=== PATIENT | female | born 1940 | race African-American/Black ===

== ENCOUNTER 2018-03-25 16:00 | Inpatient (IN) | payer MEDICARE, OTHER ==
[~2018-03-25] VITALS: Ht 162.6 cm; Wt 93.4 kg
[2018-03-25] MEDS ORDERED: SODIUM CHLORIDE 0.9% 1000ML BAG (SEPSIS BOLUS) IV ONE (17:00)
[2018-03-25 18:39] LABS: HEMATOCRIT. 39.1 % (36.0-48.0); HEMOGLOBIN. 12.2 g/dL (12.0-16.0); MEAN CORPUSCULAR HEMOGLOBIN 25.8 pg (28.0-32.0); MEAN CORPUSCULAR VOLUME 82.9 fL (81.0-99.0); PLATELET 328 x1000/uL (130-400); RED BLOOD CELL COUNT 4.72 mill/uL (4.2-5.4); RED CELL DISTRIBUTION WIDTH 15.9 % (11.6-14.6)
[2018-03-25 18:47] LABS: INR 1.1; PROTHROMBIN TIME 11.2 sec (9.1-11.1)
[2018-03-25 18:56] LABS: CHLORIDE 104 mEq/L (98-107)
[2018-03-25 18:59] LABS: ETHANOL BLOOD < 10 mg/dL
[2018-03-25] MEDS ORDERED: METRONIDAZOLE 500 MG PREMIX 100 ML IV ONE (19:00)
[2018-03-25] MEDS ORDERED: PIPERACILLIN/TAZ 3.375G PREMIX 50 ML IV ONE (19:00)
[2018-03-25 19:20] LABS: PLATELET ESTIMATE NORMAL
[2018-03-25 19:54] LABS: CLARITY URINE CLOUDY (CLEAR); COLOR URINE DARK YELLOW (YELLOW); KETONES URINE NEGATIVE (NEGATIVE); LEUKOCYTE ESTERASE URINE 1+ (NEGATIVE); NITRITE URINE POSITIVE (NEGATIVE); OCCULT BLOOD URINE TRACE (NEGATIVE); PROTEIN URINE TRACE (NEGATIVE); SPECIFIC GRAVITY URINE 1.021 (1.005-1.030)
[2018-03-25 20:40] LABS: *AMPHETAMINES SCREEN URINE NEGATIVE (NEGATIVE); *BARBITURATES SCREEN URINE NEGATIVE (NEGATIVE); *BENZODIAZEPINES SCREEN URINE NEGATIVE (NEGATIVE); *COCAINE SCREEN URINE NEGATIVE (NEGATIVE); METHADONE URINE SCREEN NEGATIVE (NEGATIVE); OPIATES URINE SCREEN PRESUMTIVE POSITIVE (NEGATIVE); PHENCYCLIDINE URINE SCREEN NEGATIVE (NEGATIVE)
[2018-03-25 20:41] LABS: CANNABINOID URINE SCREEN NEGATIVE (NEGATIVE)
[2018-03-26] VITALS (8 sets, daily range): BP systolic 117–164; BP diastolic 33–82
[2018-03-26] MEDS ORDERED: CEFTRIAXONE 2 G in DEXTROSE 5% WATER 50 ML IV SCH (06:00)
[2018-03-26] MEDS: ENOXAPARIN 30MG/0.3ML SYR SUBCUT SCH ×2 (09:00→20:40)
[2018-03-26] MEDS ORDERED: CEFTRIAXONE 1 G PREMIX 50 ML IV SCH (09:00)
[2018-03-26 09:10] LABS: HEMATOCRIT. 33.8 % (36.0-48.0); HEMOGLOBIN. 10.7 g/dL (12.0-16.0); MEAN CORPUSCULAR HEMOGLOBIN 26.2 pg (28.0-32.0); MEAN CORPUSCULAR VOLUME 82.6 fL (81.0-99.0); MEAN PLATELET VOLUME 8.8 fl (7.4-10.4); PLATELET 258 x1000/uL (130-400); RED CELL DISTRIBUTION WIDTH 15.9 % (11.6-14.6)
[2018-03-26 09:20] LABS: CHLORIDE 109 mEq/L (98-107)
[2018-03-26] MEDS ORDERED: HYDROCODONE/ACETAMINOPHEN 5/325MG TABLET PO PRN (12:45)
[2018-03-26] MEDS ORDERED: LORAZEPAM 0.5MG TABLET PO PRN (12:45)
[2018-03-26] MEDS ORDERED: DIPHENHYDRAMINE 50MG/ML VIAL IV PRN (12:45)
[2018-03-26] MEDS: SODIUM CHLORIDE 0.45% 1,000 ML IV SCH (13:56)
[2018-03-26] MEDS: AMLODIPINE 5MG TABLET PO SCH (13:57)
[2018-03-26] MEDS: LEVOFLOXACIN 500MG PREMIX 100 ML IV SCH (14:14)
[2018-03-26] MEDS: METRONIDAZOLE 500MG TABLET PO SCH ×2 (15:52→21:17)
[2018-03-26 18:24] LABS: TOTAL IRON BINDING CAPACITY 400 ug/dL (250-450)
[2018-03-26 18:53] LABS: VITAMIN B12 SERUM > 2000.0 pg/mL (211-911)
[2018-03-27] VITALS: BP 134/59
[2018-03-27 04:00] VITALS: BP 168/78
[2018-03-27] MEDS: METRONIDAZOLE 500MG TABLET PO SCH ×3 (06:37→21:47)
[2018-03-27] MEDS: SODIUM CHLORIDE 0.45% 1,000 ML IV SCH (06:37)
[2018-03-27 07:41] LABS: HEMATOCRIT 32.3 % (36.0-48.0); HEMOGLOBIN 10.4 g/dL (12.0-16.0); MEAN CORPUSCULAR HEMOGLOBIN 26.2 pg (28.0-32.0); MEAN CORPUSCULAR VOLUME 81.7 fL (81.0-99.0); PLATELET 239 x1000/uL (130-400); RED BLOOD CELL COUNT 3.96 mill/uL (4.2-5.4); RED CELL DISTRIBUTION WIDTH 15.9 % (11.6-14.6)
[2018-03-27 07:50] LABS: CHLORIDE 107 mEq/L (98-107)
[2018-03-27 07:59] LABS: LDL CHOLESTEROL 69 mg/dL (5-100)
[2018-03-27 08:00] VITALS: BP 166/78
[2018-03-27 08:00] LABS: HDL CHOLESTEROL 19 mg/dL (40-59); T4 FREE 1.26 ng/dL (0.76-1.46)
[2018-03-27] MEDS: AMLODIPINE 5MG TABLET PO SCH (09:07)
[2018-03-27] MEDS: ENOXAPARIN 30MG/0.3ML SYR SUBCUT SCH ×2 (09:08→21:47)
[2018-03-27 11:21] LABS: PLATELET ESTIMATE NORMAL
[2018-03-27] MEDS: LOSARTAN POTASSIUM 50 MG TABLET PO SCH (11:24)
[2018-03-27 12:00] VITALS: BP 168/81
[2018-03-27] MEDS: LEVOFLOXACIN 500MG PREMIX 100 ML IV SCH (14:47)
[2018-03-27 16:00] VITALS: BP 178/65
[2018-03-27] MEDS: ACETAMINOPHEN 325MG TABLET PO PRN (16:57)
[2018-03-27] MEDS: FERROUS SULFATE 325MG TABLET PO SCH (18:06)
[2018-03-27 20:00] VITALS: BP 118/84
[2018-03-27] MEDS ORDERED: DIPHENHYDRAMINE 50MG CAPSULE PO PRN (21:15)
[2018-03-27] MEDS: LISINOPRIL 40MG TABLET PO SCH (21:48)
[2018-03-28] VITALS: BP 166/78
[2018-03-28 04:00] VITALS: BP 127/67
[2018-03-28] MEDS ORDERED: ONDANSETRON HCL 4MG/2ML INJ IV PRN (05:00)
[2018-03-28] MEDS: METRONIDAZOLE 500MG TABLET PO SCH (06:14)
[2018-03-28] MEDS: FERROUS SULFATE 325MG TABLET PO SCH ×2 (06:15→13:00)
[2018-03-28 07:01] LABS: HEMATOCRIT 36.2 % (36.0-48.0); HEMOGLOBIN 11.6 g/dL (12.0-16.0); PLATELET 298 x1000/uL (130-400); RED BLOOD CELL COUNT 4.46 mill/uL (4.2-5.4); RED CELL DISTRIBUTION WIDTH 15.6 % (11.6-14.6)
[2018-03-28 07:11] LABS: CHLORIDE 104 mEq/L (98-107)
[2018-03-28 08:00] VITALS: BP 133/72
[2018-03-28] MEDS: ENOXAPARIN 30MG/0.3ML SYR SUBCUT SCH (09:00)
[2018-03-28] MEDS: AMLODIPINE 5MG TABLET PO SCH (09:47)
[2018-03-28] MEDS: LISINOPRIL 40MG TABLET PO SCH (09:47)
[2018-03-28] MEDS: LOSARTAN POTASSIUM 50 MG TABLET PO SCH (09:48)
[2018-03-28] MEDS: ACETAMINOPHEN 325MG TABLET PO PRN (09:48)
[2018-03-28 12:00] VITALS: BP 162/71
[2018-03-28] MEDS: LEVOFLOXACIN 500MG PREMIX 100 ML IV SCH (14:00)
[2018-03-28 15:42] VITALS: BP 148/76
[2018-03-28 16:00] VITALS: BP 148/76
== END 2018-03-28 18:15 | disposition home or self-care (01) | DRG 871 ==
LOC: ER 16:00 → 5WST 20:45 → EDBEDREQTM 20:52 → EDBEDREQ 20:52 → EDBEDREQSVC 20:52 → ENRESERV 22:05 → 5WST 23:30
PROVIDERS: ADMIT Internal Medicine; ATTEND Internal Medicine
DX: A41.9 Sepsis, unspecified organism (principal); I50.43 Acute on chronic combined systolic (congestive) and diastolic (congestive) heart failure; G93.40 Encephalopathy, unspecified; N39.0 Urinary tract infection, site not specified; E87.2 Acidosis; R47.01 Aphasia; G93.49 Other encephalopathy; F03.90 Unspecified dementia, unspecified severity, without behavioral disturbance, psychotic disturbance, mood disturbance, and anxiety; R73.9 Hyperglycemia, unspecified; D64.9 Anemia, unspecified; R19.7 Diarrhea, unspecified; I11.0 Hypertensive heart disease with heart failure; E61.1 Iron deficiency; D72.829 Elevated white blood cell count, unspecified; D72.825 Bandemia
CPT/HCPCS: 36415; 70551; 71045; 80048; 80061; 80305; 82140; 82607; 83036; 83540; 83550; 83605; 83880; 84145; 84439; 84443; 84484; 85027; 93005; 93306; 93970; 96365; 96368; 97161; 99291; J0696; J1650; J1956; J2405; J2543; J3490; J7030; J7050; J7060; Q0163